=== PATIENT | female | born 1980 | race American Indian/Alaskan Native ===

== ENCOUNTER 2020-02-14 00:04 | Emergency (ER) | payer SELFPAY ==
--- NOTE | 2020-02-14 00:47 | Emergency Department Report ---
ED Allergic Reaction HPI - General Chief complaint: Allergic Reaction Stated complaint: ALLERGIC REACTION Time Seen by Provider: 02/14/20 00:45 Source: patient Mode of arrival: Ambulatory Limitations: No Limitations - History of Present Illness Initial Comments: Patient is a 39-year-old female who presents emergency room with complaints of allergic reaction. Patient dates she was eating banana pudding and began having difficulty swallowing and facial redness and swelling. Patient denies shortness of breath. Patient denies chest pain. Patient states she also had hives. Patient states her symptoms have improved with time. Patient has not taken any treatment. Patient states she does not know if she is allergic to bananas or banana pudding. Patient denies chest pain. Patient denies nausea and vomiting. Patient denies recent travel. Patient denies recent international travel. Patient denies exposure to the novel coronavirus. Patient denies sick contacts. Patient denies fever and chills. Patient denies cough. Patient denies diarrhea. Patient denies coming in contact with anybody with symptoms of the novel coronavirus. Patient complains of amenorrhea. MD Complaint: allergic reaction, hives, facial swelling -: Sudden Exposure: food Symptoms: rash, itching, lip swelling, difficulty swallowing. denies: difficulty breathing, orolingual swelling, hoarseness, syncopy, dizziness, nausea, vomiting, abdominal pain Severity: severe Treatment Prior to Arrival: none Previous Allergy History: none - Related Data Home Medications Medication Instructions Recorded Confirmed Last Taken Insulin Aspart (Nf) [NovoLOG 100 1 units SC TID 02/08/13 12/20/14 06/10/13 UNITS/ML VIAL] Insulin Glargine,Hum.rec.anlog 30 unit SC HS 02/08/13 12/20/14 06/10/13 [Lantus] lisinopriL [Lisinopril] 10 mg PO DAILY 02/08/13 12/20/14 06/07/13 Previous Rx's Medication Instructions Recorded Last Taken Type oxyCODONE /ACETAMINOPHEN [Percocet 1 tab PO Q6HR PRN #20 tablet 12/20/14 Unknown Rx 5/325] Benzonatate [Tessalon Perles] 100 mg PO Q8HR #21 capsule 04/16/15 Unknown Rx Fluticasone [Flonase] 1 spray NS QDAY #1 bottle 04/16/15 Unknown Rx Loratadine [Claritin RAPDIS] 10 mg PO QDAY #30 tab.rapdis 04/16/15 Unknown Rx Sulfamethoxazole/Trimethoprim 1 each PO BID #14 tablet 04/16/15 Unknown Rx [Bactrim DS TAB] methylPREDNISolone [Medrol 4MG 4 mg PO DAILY 6 Days #1 tab.ds.pk 02/14/20 Unknown Rx DOSEPAK (21 tabs)] Allergies Allergy/AdvReac Type Severity Reaction Status Date / Time No Known Allergies Allergy Verified 02/11/13 08:08 ED Review of Systems ROS: Stated complaint: ALLERGIC REACTION Other details as noted in HPI ED Past Medical Hx - Past Medical History Previous Medical History?: Yes Hx Hypertension: Yes (2010) Hx Diabetes: Yes Hx Seizures: Yes (with scoliosis surgery in the . not on antisez meds) Hx Asthma: Yes (inhaler last used 4 months ago) Additional medical history: High Cholesterol - Surgical History Past Surgical History?: Yes Hx Breast Surgery: Yes (BREAST REDUCTION) Additional Surgical History: Tonsilectomy. Back - Social History Smoking Status: Never Smoker - Medications Home Medications: Home Medications Medication Instructions Recorded Confirmed Last Taken Type Insulin Aspart (Nf) [NovoLOG 100 1 units SC TID 02/08/13 12/20/14 06/10/13 History UNITS/ML VIAL] Insulin Glargine,Hum.rec.anlog 30 unit SC HS 02/08/13 12/20/14 06/10/13 History [Lantus] lisinopriL [Lisinopril] 10 mg PO DAILY 02/08/13 12/20/14 06/07/13 History oxyCODONE /ACETAMINOPHEN [Percocet 1 tab PO Q6HR PRN #20 tablet 12/20/14 Unknown Rx 5/325] Benzonatate [Tessalon Perles] 100 mg PO Q8HR #21 capsule 04/16/15 Unknown Rx Fluticasone [Flonase] 1 spray NS QDAY #1 bottle 04/16/15 Unknown Rx Loratadine [Claritin RAPDIS] 10 mg PO QDAY #30 tab.rapdis 04/16/15 Unknown Rx Sulfamethoxazole/Trimethoprim 1 each PO BID #14 tablet 04/16/15 Unknown Rx [Bactrim DS TAB] methylPREDNISolone [Medrol 4MG 4 mg PO DAILY 6 Days #1 tab.ds.pk 02/14/20 Unknown Rx DOSEPAK (21 tabs)] ED Physical Exam - General Limitations: No Limitations General appearance: alert, in no apparent distress - Head Head exam: Present: atraumatic, normocephalic - Eye Eye exam: Present: normal appearance - ENT ENT exam: Present: mucous membranes moist - Neck Neck exam: Present: normal inspection - Respiratory Respiratory exam: Present: normal lung sounds bilaterally. Absent: respiratory distress, wheezes, rales, rhonchi, stridor, chest wall tenderness - Cardiovascular Cardiovascular Exam: Present: regular rate, normal rhythm. Absent: systolic murmur, diastolic murmur, rubs, gallop - GI/Abdominal GI/Abdominal exam: Present: soft, normal bowel sounds. Absent: distended, tenderness, guarding - Extremities Exam Extremities exam: Present: normal inspection - Back Exam Back exam: Present: normal inspection - Neurological Exam Neurological exam: Present: alert, oriented X3 - Psychiatric Psychiatric exam: Present: normal affect, normal mood - Skin Skin exam: Present: warm, dry, intact, rash, erythema, urticaria ED Course Vital Signs 02/14/20 02/14/20 00:23 00:45 Temperature 99.1 F Pulse Rate 109 H Respiratory 18 18 Rate Blood Pressure 156/102 O2 Sat by Pulse 96 96 Oximetry - Reevaluation(s) Reevaluation #1: Patient states she is feeling much better. I discussed all results and clinical findings with patient. I discussed plan of care with patient. Patient agrees with plan of care. Patient is stable for discharge. Patient will be discharged home. Patient given discharge instr uctions. Patient voiced understanding of discharge instructions. 02/14/20 02:04 ED Medical Decision Making - Medical Decision Making Patient is a 39-year-old female that presents emergency room with allergic reaction symptoms, rash, difficulty swallowing. Patient also complained of amenorrhea. Patient had a urine done which was negative. Patient instructed to follow-up with a [facility] MANAGER and/or her primary care for the amenorrhea. For the allergic reaction, patient given IV Solu-Medrol responded well. Patient symptoms resolved prior to discharge. Patient responded well to treatment. Patient given discharge instructions. Patient is stable for discharge. Patient not require further emergency medical services. - Differential Diagnosis Allergic reaction, hives, food allergy, amenorrhea. Critical care attestation.: If time is entered above; I have spent that time in minutes in the direct care of this critically ill patient, excluding procedure time. ED Disposition Clinical Impression: Amenorrhea, Urticaria Allergic reaction Qualifiers: Encounter type: initial encounter Qualified Code(s): T78.40XA - Allergy, unspecified, initial encounter Disposition: TO HOME OR SELFCARE Is pt being admited?: No Does the pt Need Aspirin: No Condition: Stable Instructions: Hives, Rash, Adult, Allergies, Adult, [id number], Hives, [id number], Allergies, Adult Additional Instructions: Patient to follow-up with primary care in 2 to 3 days. Patient to follow-up with telephone technician in 2 to 3 days. Patient to rest. Patient to increase water. Patient to avoid strenuous exercise or heavy lifting until cleared by telephone technician and primary care. Patient to take Tylenol or ibuprofen as needed for pain. Patient to take meds as directed. Patient to return to the ER if condition worsens, changes or new symptoms arise. Prescriptions: methylPREDNISolone [Medrol 4MG DOSEPAK (21 tabs)] 4 mg PO DAILY 6 Days #1 tab.ds.pk Referrals: PRIMARY CARE, [Primary Care Provider] - 2-3 Days Time of Disposition: 02:10
[2020-02-14 01:14] LABS: HCG Qualitative,Urine Negative (Negative)
[2020-02-14] MEDS ORDERED: methylPREDNISolone Sod Succinate 125 MG/2 ML INJ ONE (01:53)
[2020-02-14] MEDS ORDERED: methylPREDNISolone Sod Succinate 125 MG/2 ML INJ IV ONE (01:58)
[2020-02-14 02:22] VITALS: BP 148/90
== END 2020-02-14 02:21 | disposition home or self-care (01) ==
LOC: ED 00:04
DX: T78.40XA Allergy, unspecified, initial encounter (principal); N91.2 Amenorrhea, unspecified; L50.9 Urticaria, unspecified; I10 Essential (primary) hypertension; E11.9 Type 2 diabetes mellitus without complications; G40.909 Epilepsy, unspecified, not intractable, without status epilepticus; J45.909 Unspecified asthma, uncomplicated; Z98.890 Other specified postprocedural states; Z79.4 Long term (current) use of insulin; Z79.899 Other long term (current) drug therapy
CPT/HCPCS: 81025; 96374; 99283; J2930